=== PATIENT | female | born 1975 | race Caucasian/White ===

== ENCOUNTER 2024-05-09 15:39 | Outpatient (CLI) | payer OTHER, SELFPAY ==
--- NOTE | ~2024-05-09 | XR_ITS ---
EXAMINATION: XR shoulder RT min 2V DATE: 05/09/2024 15:55 INDICATION: Other specified joint disorders. TECHNIQUE: 4 views of right shoulder were obtained. COMPARISON: None. FINDINGS: There is thoracic dextroscoliosis. No fracture. Joint spaces are normal. Calcified right galileo ng nodules are consistent with old granulomatous disease. IMPRESSION: 1. Normal right shoulder. Reviewed, dictated and finalized at location A. IMPRESSION: 1. Normal right shoulder.
== END 2024-05-09 15:40 ==
PROVIDERS: PCP Physician Assistant; Visit Provider Physician Assistant
DX: M25.811 Other specified joint disorders, right shoulder (principal)
CPT/HCPCS: 73030